=== PATIENT | female | born 1995 | race Caucasian/White ===

== ENCOUNTER 2017-03-05 22:02 | Emergency (ER) | payer OTHER ==
[2017-03-05 22:17] VITALS: RESP 14
[2017-03-05] MEDS ORDERED: ONDANSETRON 4 MG/2 ML VIAL ONE (22:21)
[2017-03-05] MEDS ORDERED: ONDANSETRON 4MG PREPACK#2 BTL TAKEHOME ONE (22:22)
[2017-03-05] MEDS ORDERED: ONDANSETRON 4 MG/2 ML VIAL IVP ONE (22:22)
[2017-03-05] MEDS ORDERED: NS 1,000 ML IV ONE ×2 (22:22)
--- NOTE | 2017-03-05 22:23 | EDPHY ---
H & P Time Seen by Provider: 03/05/17 22:09 HPI/ROS: CHIEF COMPLAINT: Vomiting HISTORY OF PRESENT ILLNESS: Patient had general anesthesia for wisdom tooth extraction this past Friday 48 hours ago. Over the last 2 days she has taken about 8 hydrocodone acetaminophen pain tablets. Her face and jaw but actually felt better and less swollen and less painful. No intraoral bleeding. However she had some nausea and vomiting that night after surgery, yesterday, and then again today. No abdominal pain. Vomiting moderate to severe and today was associated with a couple of specks of bright red blood. She had a banana and some mashed potatoes today but despite trying to eat and drink still had vomiting. REVIEW OF SYSTEMS: Eye: no change in vision ENT: Some pain in her jaw after surgery but improving. Cardiac: no chest pain or syncope Pulmonary: no cough or SOB Abdomen: No abdominal pain or diarrhea Musculoskeletal: Some cramping in her back after vomiting but no other musculoskeletal symptoms. Skin: Very faint red rash on both shoulders prior to her surgery which is persistent and unchanged. Neuro: no headache Constitutional: no fever : no urinary symptoms A comprehensive 10 point review of systems is otherwise negative aside from elements mentioned in the history of present illness. PAST MEDICAL HISTORY: Negative except for wisdom tooth extraction as above Social history: No alcohol or tobacco General Appearance: Alert and conversant, cooperative. Eyes: No scleral icterus. ENT, Mouth: Very slightly dry mucous membranes but no trismus, no gum swelling , no intraoral bleeding. No facial swelling. Respiratory: Normal respiratory effort, breath sounds equal, lungs are clear to auscultation. Cardiovascular: Regular rate and rhythm. Gastrointestinal: Abdomen is soft and non tender. Nontender over McBurney's point. Neurological: Alert and oriented x3. Normally conversant. Face symmetric, normal movement and sensation in all extremities. Skin: Very faint red rash around both shoulder areas. Not fascicular. Not petechial or purpuric. Musculoskeletal: No peripheral edema and no joint swelling. Psychiatric: Not agitated. Emergency Department course/MDM: Patient has nausea and vomiting likely related to the combination of general anesthesia for her wisdom tooth extraction and oral pain medication over the last 48 hours. I think that her vomiting small amount of bright red blood is most consistent with Corrie-Huang tear and I do not think this likely represents acute postoperative bleeding or acute upper gastrointestinal bleed. IV normal saline 2 L for nausea and vomiting, Zofran 4 mg IV. Plan to discharge with Zofran ODT if she tolerates oral fluids after this. She clinically does not appear to be severely dehydrated enough that electrolyte abnormality would be likely. 2300: Patient and mother in agreement with plan, treatment as above but no diagnostics unless failure to improve. Smoking Status: Never smoked Constitutional: Initial Vital Signs Temperature (C) 36.8 C 03/05/17 22:15 Heart Rate 87 03/05/17 22:15 Respiratory Rate 14 03/05/17 22:15 Blood Pressure 122/64 H 03/05/17 22:15 O2 Sat (%) 93 03/05/17 22:15 O2 Delivery Mode Room Air Allergies/Adverse Reactions: No Known Allergies Allergy (Verified 03/05/17 22:14) Home Medications: Medication Instructions Recorded Vicodin 5-300 mg Tablet 03/05/17 Medical Decision Making Differential Diagnosis: Differential for nausea and vomiting considered including but not limited to GI bleed, viral syndrome, medication reaction, sequela from general anesthesia. - Data Points Medications Given: Discontinued Medications Sodium Chloride (Ns) 1,000 mls @ 0 mls/hr IV EDNOW ONE; Wide Open PRN Reason: Protocol Stop: 03/05/17 22:23 Last Admin: 03/05/17 22:33 Dose: 1,000 mls Sodium Chloride (Ns) 1,000 mls @ 0 mls/hr IV EDNOW ONE; Wide Open PRN Reason: Protocol Stop: 03/05/17 22:23 Last Admin: 03/05/17 23:04 Dose: 1,000 mls Ondansetron HCl (Zofran) 4 mg IVP EDNOW ONE Stop: 03/05/17 22:23 Last Admin: 03/05/17 22:30 Dose: 4 mg Ondansetron HCl (Zofran Odt 4 Mg Prepack#2) 1 btl TAKEHOME EDNOW ONE Stop: 03/05/17 22:23 Last Admin: 03/05/17 23:06 Dose: 1 btl Departure - Departure Disposition: Home, Routine, Self-Care Clinical Impression: Nausea & vomiting Qualifiers: Vomiting type: unspecified Vomiting Intractability: non-intractable Qualified Code(s): R11.2 - Nausea with vomiting, unspecified Condition: Good Instructions: Acute Nausea and Vomiting (ED) Referrals: Marta Reyez DO [Primary Care Provider] - As per Instructions
[2017-03-06 00:02] VITALS: BP 99/62; PULSE 78; TEMP 97.7; O2SAT 95
== END 2017-03-06 00:07 | disposition home or self-care (01) ==
LOC: CED 22:02
DX: R11.2 Nausea with vomiting, unspecified (principal); E86.9 Volume depletion, unspecified
CPT/HCPCS: 96374; J2405